=== PATIENT | female | born 1935 | race Caucasian/White ===

== ENCOUNTER 2020-01-14 17:33 | Inpatient (IN) | payer MEDICARE, MEDICAID ==
--- NOTE | 2020-01-14 18:16 | RAD ---
EXAM: CHEST ONE VIEW 01/14/20 HISTORY: Preoperative evaluation FINDINGS: Inspiration is less than optimal. Heart size is normal. The lungs appear clear of acute process. IMPRESSION: No significant acute intrathoracic disease. Atherosclerosis of the aorta. POS: RRE
[2020-01-14 18:22] LABS: Bacteria/HPF 4+ HPF (None Seen); Bilirubin Negative (Negative); Blood, Urine Trace (Negative); Clarity Clear (Clear); Glucose, Urine (Dipstick) Greater than 1000 mg/dL (Negative); Ketone, Urine 60 mg/dL (Negative); Leukocyte Negative Leu/uL (Negative); Nitrite 1+ (Negative); Protein, Urine (Dipstick) Negative (Neg-Trace); RBC/HPF 0-3 HPF (0-3); Squamous Epithelial 0-3 HPF (0-3); Urobilinogen Normal mg/dL (Less than 2); WBC/HPF 0-3 HPF (0-3)
--- NOTE | 2020-01-14 18:24 | RAD ---
EXAM: RIGHT HIP TWO VIEWS: 01/14/20 HISTORY: Injury from a fall. FINDINGS: Markedly comminuted foreshortened intertrochanteric fracture right femur. No dislocation. IMPRESSION: Markedly comminuted foreshortened intertrochanteric fracture right femur with varus deformity. POS: RRE
--- NOTE | 2020-01-14 18:27 | RAD ---
EXAM: AP PELVIS ONE VIEW: 01/14/20 HISTORY: Injury from a fall. FINDINGS: Markedly comminuted intertrochanteric fracture right hip with foreshortening and varus deformity. No evidence for acute pelvic fracture. IMPRESSION: Comminuted intertrochanteric fracture right femur with foreshortening and varus deformity. POS: RRE
[2020-01-14 18:32] LABS: #Lymphocytes 0.9 thou/uL (1.20-3.40); #Monocytes 0.6 thou/uL (0.11-0.59); %Basophils 0.1 % (0.0-1.0); %Eosinophils 0.2 % (0.0-10.0); %Lymphocytes 9.1 % (21.0-51.0); %Monocytes 5.9 % (0.0-10.0); %Neutrophils 84.8 % (42.0-75.0); Hemoglobin 15.2 g/dL (12.0-16.0); Mean Corpuscular HGB CONC 33.9 g/dL (32.0-36.0); Mean Corpuscular Hemoglobin 31.9 pg (27.0-31.0); Mean Corpuscular Volume 94.1 fL (78.0-98.0); Platelet Count 231 thou/uL (130-400); RBC Distribution Width 12.2 % (11.5-14.5); Red Blood Cell (RBC) Count 4.76 mill/uL (4.20-5.40); White Blood Cell (WBC) Count 9.5 thou/uL (4.8-10.8)
[2020-01-14] MEDS ORDERED: cefTRIAXone\\ROCEPHIN 2 GM VIAL ONE (18:33)
[2020-01-14 18:36] LABS: PTT 24.9 sec (22.9-36.1); Prothrombin Time 13.2 sec (12.0-14.7)
[2020-01-14 18:54] LABS: ALT (SGPT) 16 U/L (8-55); AST (SGOT) 24 U/L (5-34); Albumin 3.9 g/dL (3.4-4.8); Alkaline Phosphatase 97 U/L (40-110); Anion Gap 20 mmol/L (10-20); BUN (Urea Nitrogen) 13 mg/dL (9.8-20.1); Bilirubin, Total 1.5 mg/dL (0.2-1.2); CK (CPK) 223 U/L (29-168); Calc. Creatinine Clearance 0 mL/min (70-130); Calcium 9.5 mg/dL (7.8-10.44); Carbon Dioxide 18 mmol/L (23-31); Chloride 104 mmol/L (98-107); Estimated GFR-MDRD 66; Globulin 3.3 g/dL (2.4-3.5); Glucose 362 mg/dL (83-110); Potassium 4.1 mmol/L (3.5-5.1); Protein, Total 7.2 g/dL (6.0-8.3); Sodium 138 mmol/L (136-145)
--- NOTE | 2020-01-14 19:27 | CT ---
CT HEAD WITHOUT IV CONTRAST COMPARISON: None HISTORY: Trauma. Patient fell and hit head. TECHNIQUE: Axial CT imaging at 5 mm intervals from vertex through skull base without contrast FINDINGS: There is decreased attenuation in the periventricular white matter which is nonspecific but likely re flective of chronic small vessel ischemic changes. There is mild cerebral volume loss. The ventricular system is normal in size, shape, and position for the degree of sulcal atrophy. Small linear increased density focus is seen in a right parafalcine and supraventricular location ramesh suring approximately 5 mm likely due to very tiny focus of hemorrhage. No additional intraparenchymal or extra-axial hemorrhage is seen. There is no evidence of an acute cortical infarct ion, mass effect, or midline shift. Visualized paranasal sinuses are clear. Osseous structures appear intact. IMPRESSION: 1. Findings suggesting a very tiny right parafalcine focus of hemorrhage measuring 5 mm. Follow-up CT head is recommended. 2. Chronic small vessel ischemic changes and cerebral volume loss. Findings discussed Dr. Vidal in the emergency department 01/14/2020 at 1923
[2020-01-14 20:07] LABS: SARS-CoV-2 NAA Rapid Test Not Detected (NotDetected)
[2020-01-14] MEDS ORDERED: Dextrose 5% in Water 1,000 ML IV PRN (21:06)
[2020-01-14] MEDS ORDERED: Ondansetron PF 4 MG/2 ML Vial IVP PRN (21:06)
[2020-01-14] MEDS ORDERED: hydrALAZINE 20 MG/ML VIAL SLOW IVP PRN ×2 (21:06)
[2020-01-14] MEDS ORDERED: Dextrose 50% Abboject 50 ML SYRINGE SLOW IVP PRN (21:06)
[2020-01-14] MEDS ORDERED: traMADol HCl 50 MG TAB PO PRN (21:09)
[2020-01-14 21:22] LABS: Lactic Acid 1.7 mmol/L (0.5-2.2)
[2020-01-14 22:27] LABS: Hemoglobin A1c 11.8 % (4.0-6.0)
[2020-01-14 22:28] LABS: Phosphorus 2.4 mg/dL (2.3-4.7)
[2020-01-14 22:30] LABS: Magnesium 1.3 mg/dL (1.6-2.6)
[2020-01-14] MEDS ORDERED: Magnesium 2 GM/50 ML 2 GM in Premix Bag 1 BAG IVPB SCH (23:15)
[2020-01-14] MEDS: Acetaminophen 500 MG TAB PO SCH (23:21)
[2020-01-14] MEDS: Sodium Chloride 0.9% 1,000 ML IV SCH (23:22)
[2020-01-14 23:46] VITALS: BMI 32.0
[2020-01-15] MEDS ORDERED: Insulin Glargine 10 UNITS in Pre-Filled Syringe 1 EACH SC SCH (01:00)
[2020-01-15] MEDS: Levothyroxine Sodium 112 MCG TAB PO SCH (05:10)
[2020-01-15] MEDS: Acetaminophen 500 MG TAB PO SCH ×4 (05:11→22:24)
[2020-01-15] MEDS: Levothyroxine Sodium 25 MCG TAB PO SCH (05:11)
[2020-01-15] MEDS: Sodium Chloride 0.9% 1,000 ML IV SCH ×2 (05:13→16:00)
--- NOTE | 2020-01-15 05:50 | HP ---
REQUESTING PHYSICIAN: Terell Vidal MD CONSULTING PHYSICIAN: Jak Dhillon MD TRAUMA PHYSICIAN: Ap Saldivar MD HISTORY OF PRESENT ILLNESS: Ms. Chaparro is an 84-year-old female, who presented to the ED after the fall at home. Earlier this morning, the patient reports she tried to get out of her bed to go to the bathroom, missed her step and fell. After the fall, she felt hip pain and she was unable to get up and get help. She was at home all by herself at that time. The patient remember all of the event. She did not lose consciousness or hit her head. The patient was brought to the ED by EMS after her son came home from work and found her on the floor. Upon arrival in the ED, the patient is alert and awake. She complains of right hip pain. No other injury to be reported. REVIEW OF SYSTEMS: Noncontributory except per HPI. PAST MEDICAL HISTORY: The patient has a past medical history of 2 times heart attack 15 years ago, stroke 15 years ago, diabetes for 25 years, hypertension. PAST SURGICAL HISTORY: Noncontributory. SOCIAL HISTORY: The patient lives at home with family. Denies drug use. Denies smoking. Denies alcohol. CURRENT MEDICATIONS: The patient does not remember. ALLERGIES: NO KNOWN DRUG ALLERGIES. PHYSICAL EXAMINATION: GENERAL: Currently, the patient is lying in bed, comfortable with no acute respiratory distress. The patient is alert and awake. GCS 15. SKIN: Yoder and moist. HEENT: Atraumatic. No bruising. No tender to palpation. NECK: Trachea midline. No tender to palpation. CHEST: Atraumatic. Erythema around the breast crease bilaterally. LUNGS: Clear bilaterally. HEART: Regular rate and rhythm. ABDOMEN: No bruising. No tender to palpation. Nondistended. Bowel sounds are active. PELVIS: Stable. EXTREMITIES: The patient is able to move all 4 extremities. Gross sensory intact. Pulse, 2+ bilaterally. Right hip limited range of motion due to pain. DIAGNOSTIC DATA: Initial workup showed pelvic x-ray comminuted intertrochanteric fracture of the right femur. Brain CT scan finding, very tiny right parafalcine focus hemorrhage. LABORATORY DATA: Showed white count 9.5, hemoglobin 15.2, platelet count 231,000. Sodium 138, potassium 4.1, creatinine 0.82, glucose 362. A1c 11.8. Lactic acid 2.9 to 1.7, magnesium 1.3. ASSESSMENT: 1. Status post ground level fall, late presentation. 2. Right hip fracture. 3. Small subarachnoid hemorrhage. 4. No neurological deficits. 5. Hypomagnesium. 6. Tinea corporis. 7. History of diabetes, uncontrolled. PLAN: The patient will be admitted to [place] [id number] for pain control. IV fluids, n.p.o. at midnight. The patient will need to go to the OR with Dr. Menezes for right hip fracture fixation tomorrow. Manage diabetes using insulin. Treat the tinea corporis using nystatin powder. Repeat brain CT scan tomorrow. Neuro check q.2 hours. Postop, the patient will need to work with physical therapy and occupational therapy. Initiate nonpharmacological DVT prophylaxis, gastritis prophylaxis. Job ID: [id number]
[2020-01-15 05:54] LABS: Anion Gap 10 mmol/L (10-20); BUN (Urea Nitrogen) 9 mg/dL (9.8-20.1); Calc. Creatinine Clearance 71 mL/min (70-130); Calcium 8.6 mg/dL (7.8-10.44); Carbon Dioxide 24 mmol/L (23-31); Chloride 108 mmol/L (98-107); Estimated GFR-MDRD 83; Glucose 285 mg/dL (83-110); Phosphorus 2.5 mg/dL (2.3-4.7); Potassium 3.4 mmol/L (3.5-5.1); Sodium 139 mmol/L (136-145)
[2020-01-15] MEDS ORDERED: Potassium Phosphate 15 MMOL in Sodium Chloride 0.9% 250 ML 250 ML IVPB SCH (06:15)
--- NOTE | 2020-01-15 06:51 | CON ---
DATE OF CONSULTATION: 01/15/2020 HISTORY OF PRESENT ILLNESS: The patient is an 84-year-old female, who suffered a mechanical fall at home, striking her head and her right hip. Unfortunately, she was unable to get up at that time and laid on the floor for several hours until her son found her on the floor. She was brought to the emergency department for evaluation and found to have a right hip fracture as well as small amount of traumatic subarachnoid hemorrhage along the right parafalcine region. She was also found to have an elevated CK, likely secondary to lying on the floor for several hours. Neurosurgery was consulted for evaluation of her traumatic subarachnoid bleed. I visited the patient on the bedside at the floor. She has a GCS 15 and is nonfocal on her neurologic exam. PAST MEDICAL HISTORY: Hypothyroidism, history of endocrine cancer, hyperlipidemia, and hypertension. FAMILY HISTORY: Noncontributory. SOCIAL HISTORY: She does not smoke, drink, or use any drugs. REVIEW OF SYSTEMS: Per HPI. PHYSICAL EXAMINATION: GENERAL: I visited the patient on the floor. She is awake, alert, in no acute distress. GCS 15. HEENT: Head; normocephalic and atraumatic. Eyes; PERRLA. Extraocular movements intact. ENT, pink intact, and moist. She has normal voice. NECK: Nontender. Free active range of motion. CARDIAC: Regular rate and rhythm. PULMONARY: Symmetric chest expansion. No evidence of dyspnea. MUSCULOSKELETAL: She has pain and limited range of motion of the right lower extremity secondary to underlying hip fractures. Her sensation is intact to light touch. She is able to move the toes on that side without any difficulty. Remainder of extremities, free active range of motion. No focal motor weakness. NEUROLOGIC: No focal neurologic deficits are appreciated. ASSESSMENT AND PLAN: This is an 84-year-old female, status post mechanical fall with a right hip fracture and a small right parafalcine tSAH on noncontrast head CT. This is very tiny and there are no plans for acute neurosurgical intervention at this time. We will monitor her neurologic exam and repeat a morning head CT. Discussed with Dr. Dhillon, who is in agreement. This is a 50-minute patient encounter, where greater than 50% of the time was spent in [id number] counseling. The remainder of the time was spent in review of imaging records and formulation of plan. Job ID: [id number] MTDD
--- NOTE | 2020-01-15 08:49 | CT ---
Exam: Head CT without contrast HISTORY: Reevaluate tiny right parafalcine subdural hematoma COMPARISON: 01/14/2020 FINDINGS: Hemorrhage: Stable subtle hyperdensity, right parafalcine in location measuring 0.5 cm. No additional intraparenchymal or extra-axial hematoma. Brain parenchyma: Cortical lau-white matter differentiation is preserved. No mass effect or midline shift. Basilar cisterns are patent.Stable confluent white matter hypodensities due to chronic small vessel ischemic change Ventricular system: Ventricles and sulci are patent and symmetric. Calvarium: Intact. Sinuses and mastoid air cells: Mild mucosal thickening of the paranasal sinuses IMPRESSION: 1. Stable subtle hyperdensity, right parafalcine in location. Small focus of hemorrhage cannot be ent irely excluded. The possibility of a small cortically based hematoma is a consideration. Continued surveillance is recommended.
[2020-01-15] MEDS ORDERED: Gabapentin 300 MG CAP PO SCH (09:00)
[2020-01-15] MEDS: Famotidine 20 MG TAB PO SCH ×2 (09:11→20:17)
[2020-01-15] MEDS: Alogliptin 25 MG TAB PO SCH (09:12)
[2020-01-15] MEDS: Atorvastatin Calcium 40 MG TAB PO SCH (09:12)
[2020-01-15] MEDS: Lisinopril 20 MG TAB PO SCH (09:20)
[2020-01-15] MEDS: Nystatin Powder 15 GM BOT TOP SCH ×2 (09:20→20:18)
[2020-01-15] MEDS: Senokot S 8.6-50 MG TAB PO SCH ×2 (09:21→20:17)
[2020-01-15] MEDS: Polyethylene Glycol 3350 17 GM Packet PO SCH (09:21)
--- NOTE | 2020-01-15 09:32 | CON ---
DATE OF CONSULTATION: 01/14/2020 CHIEF COMPLAINT: Right hip pain. HISTORY OF PRESENT ILLNESS: Ms. Chaparro is an 84-year-old female who unfortunately fell at home earlier this afternoon. The patient lost her balance. She was not using her walker. She got up to go to the bathroom, when she missed a step. She was found down and was taken to the emergency department by EMS. X-rays have found a right intertrochanteric femur fracture. She is having right hip pain, but has received pain medications and is resting fairly comfortably. She denies other injuries. PAST MEDICAL HISTORY: 1. Coronary artery disease. 2. Diabetes. 3. Hypertension. REVIEW OF SYSTEMS: Positive for right hip pain. Otherwise, negative 10-point review of systems. PAST SURGICAL HISTORY: The patient denies recent surgeries. SOCIAL HISTORY: The patient lives independently. She uses a walker. She denies alcohol, tobacco, or drug use. MEDICATIONS: Unknown. ALLERGIES: SHE REPORTS NO ALLERGIES. IMAGING STUDIES: X-rays of the pelvis and right hip demonstrate a displaced and comminuted intertrochanteric fracture of the right femur, this is acute. LABORATORY STUDIES: White blood cell count is 9.5, hemoglobin is 15.2, and hematocrit is 44.8. PHYSICAL EXAMINATION: VITAL SIGNS: Stable. The patient's temperature is 98.7, pulse is 93, respiratory rate 16, and 170/66 of blood pressure. HEENT: Normocephalic and atraumatic. RESPIRATORY: Breathing comfortably. ABDOMEN: Soft, nontender, and nondistended. The patient is somewhat obese. Pulses are palpable and regular. MUSCULOSKELETAL: The patient's right lower extremity has shortening and external rotation. She has pain with hip motion. She has some swelling of the thigh. Her compartments are soft. She is neurovascularly intact in the feet and ankles bilaterally. Upper extremities are atraumatic. IMPRESSION: Right intertrochanteric femur fracture. PLAN: At this point, the patient will need to go to the operating room for intramedullary nail fixation of her right femur. She is aware of risks and benefits of this. She will have preoperative medical optimization. She will have ongoing workup including CT scan of the head. She will have a urinalysis to see if she does in fact have a UTI as well. She will have DVT prophylaxis and antibiotic prophylaxis. N.p.o. at midnight. Job ID: [id number]
[2020-01-15] MEDS: Sulfameth/Trimethoprim DS 800-160mg TAB PO SCH ×2 (09:42→20:17)
[2020-01-15] MEDS ORDERED: PROPOFOL 200 MG/20 ML VIAL ONE (11:01)
[2020-01-15] MEDS ORDERED: Bupivacaine HCl 0.5%/Epinephrine 1:200,000/PF 30 ml Vial ONE (11:01)
[2020-01-15] MEDS ORDERED: Glycopyrrolate 0.2 MG/ML 5 ML SYRINGE ONE (11:01)
[2020-01-15] MEDS ORDERED: Ondansetron PF 4 MG/2 ML Vial ONE (11:01)
[2020-01-15] MEDS ORDERED: Rocuronium Bromide 10 MG/ML (10ML VIAL) ONE (11:01)
[2020-01-15] MEDS ORDERED: PHENYLEPHRINE-NS 100 MCG/ML 10 ML SYRINGE ONE (11:01)
[2020-01-15] MEDS ORDERED: Fentanyl 100 MCG/2 ML VIAL ONE ×3 (12:10→14:14)
[2020-01-15] MEDS ORDERED: Midazolam HCl 2 mg/2 ml Vial ONE (12:27)
--- NOTE | 2020-01-15 13:50 | RAD ---
Radiograph right hip 2 views: 01/15/2020 HISTORY: 84-year-old female with acute, traumatic, comminuted, displaced intertrochanteric fracture of right p roximal femur. COMPARISON: 01/14/2020 FINDINGS: 3 fluoroscopic spot images obtained with C-arm. The fracture has been reduced, and fixated with gamma nail. IMPRESSION: Status post hardware fixation of acute, traumatic intertrochanteric fracture with gamma nail.
[2020-01-15] MEDS ORDERED: CEFAZOLIN 2 GM in Premix Bag 1 BAG IVPB SCH (14:00)
[2020-01-15] MEDS: Gabapentin 100 MG CAP PO SCH ×2 (16:00→20:17)
--- NOTE | 2020-01-15 16:03 | OP ---
DATE OF PROCEDURE: 01/15/2020 OPERATION PERFORMED: Right femur intramedullary nail. PREOPERATIVE DIAGNOSIS: Right displaced proximal femur fracture. POSTOPERATIVE DIAGNOSIS: Right displaced proximal femur fracture. COMPLICATIONS: None. ESTIMATED BLOOD LOSS: 100 mL. CONTENT DEVELOPER: Derek Wilson PA-C IMPLANTS: Synthes 10-mm trochanteric nail with a size 90-mm helical blade DESCRIPTION OF OPERATION: Ms. Chaparro was identified in the preoperative holding area. Her correct extremity was marked. She was carried to the operating room. She was positioned supine. General anesthesia was induced. A multidisciplinary time-out was performed. The right lower extremity was prepped and draped in sterile fashion. We began the procedure with reducing the intertrochanteric femur fracture. The patient's leg was placed in traction and rotated. We took intraoperative x-rays, confirming we had a reduced fracture. At this point, we made a small incision proximal to the greater trochanter. We incised through the subcutaneous tissues. A guidewire was then inserted in the tip of the trochanter. This was passed distally. We then over-reamed the guidewire. At this point, we inserted our 10-mm trochanteric nail. We then placed our guidewire in the centered position of the femoral head using the appropriate guide. We overdrilled the guidewire and placed our helical blade. This was placed into a dynamic position. At this point, we placed a distal Crosslock screw. We took final x-ray images. We thoroughly irrigated with copious lavage. We then closed the wounds in layers appropriately. The patient was taken to the recovery room in good condition. Job ID: [id number]
--- NOTE | 2020-01-15 19:07 | PRG ---
DATE OF SERVICE: 01/15/2020 SUBJECTIVE: The patient is currently on the surgical floor. She was admitted last night, status post ground level fall when she sustained a right hip fracture and small subarachnoid hemorrhage. The patient had no issues overnight. This morning, her repeat head CT showed a stable subarachnoid hemorrhage. She was cleared to go to surgery for her repair of hers proximal femur fracture. The patient remained n.p.o. overnight. This morning, she stated that her pain was well controlled. OBJECTIVE: VITAL SIGNS: Temperature is 98.1, heart rate 93, blood pressure 105/63, respirations 16, and oxygen saturation is 91% on room air. GENERAL: The patient is resting comfortably in bed. She is awake, alert, conversant, and appropriate. HEENT: Unremarkable. LUNGS: Clear to auscultation with good inspiratory and expiratory effort. HEART: Regular rate and rhythm. ABDOMEN: Soft, flat, and nontender with active bowel sounds. EXTREMITIES: Neurovascularly intact x4. LABORATORY FINDINGS: Sodium 139, potassium 3.4, chloride 108, CO2 of 24, BUN 9, creatinine 0.67, glucose 285, magnesium 2.0, and phosphorus 2.5. RADIOGRAPHS: No radiographs to review this morning. ASSESSMENT/PLAN: 1. Status post ground level fall with delayed presentation. 2. Right proximal femur fracture. 3. Small subarachnoid hemorrhage, stable. 4. History of diabetes, uncontrolled. 5. Plan to be to continue supportive care. Encourage physical and occupational therapy after surgery and we will discuss placement at that time also. The evaluation and examination were done with Dr. Davis in rounds this morning. Job ID: [id number]
[2020-01-15] MEDS: CEFAZOLIN 2 GM in Premix Bag 1 BAG IVPB SCH (20:12)
[2020-01-15] MEDS: Insulin Glargine 10 UNITS in Pre-Filled Syringe 1 EACH SC SCH (20:18)
[2020-01-16] MEDS: HumaLOG 300 UNITS/3 ML VIAL SC PRN ×4 (00:16→21:07)
[2020-01-16] MEDS: traMADol HCl 50 MG TAB PO PRN (00:16)
--- NOTE | 2020-01-16 00:53 | PRG ---
DATE OF SERVICE: 01/15/2020 SUBJECTIVE: Ms. Chaparro is an 84-year-old female, status post ground level fall. She sustained right hip fracture. She underwent right hip fracture fixation today. The patient tolerated the procedure well. Postop, the patient is doing well. Pain is well controlled. She also has small subarachnoid hemorrhage with no neurological deficits. She will plan to have repeat CT scan tomorrow. Overall, the patient voiced no concern. She developed no fever or shortness of breath. OBJECTIVE: GENERAL: Currently, the patient is lying in bed comfortable with no acute respiratory distress. VITAL SIGNS: Stable. LUNGS: Clear bilaterally. HEART: Regular rate and rhythm. ABDOMEN: Soft and nondistended. EXTREMITIES: Neurovascularly intact x4. Postop dressing clean and dry. NEUROLOGIC: No focal neurology deficits. ASSESSMENT: 1. Status post ground level fall. 2. Right hip fracture, status post repair. 3. Small subarachnoid hemorrhage with no neurological deficits. 4. History of diabetes, uncontrolled. PLAN: Continue supportive care. Continue pain control. Encourage working with Physical Therapy and Occupational Therapy tomorrow. Continue diabetes treatment with just insulin as needed. Anticipate discharge to rehabilitation facility in the next 24 to 48 hours. Job ID: [id number] MTDD
[2020-01-16] MEDS: CEFAZOLIN 2 GM in Premix Bag 1 BAG IVPB SCH (04:19)
[2020-01-16] MEDS: Levothyroxine Sodium 112 MCG TAB PO SCH (05:24)
[2020-01-16] MEDS: Acetaminophen 500 MG TAB PO SCH ×4 (05:24→23:22)
[2020-01-16] MEDS: Levothyroxine Sodium 25 MCG TAB PO SCH (05:24)
[2020-01-16 05:59] LABS: Anion Gap 10 mmol/L (10-20); BUN (Urea Nitrogen) 8 mg/dL (9.8-20.1); Calc. Creatinine Clearance 73 mL/min (70-130); Calcium 8.4 mg/dL (7.8-10.44); Carbon Dioxide 22 mmol/L (23-31); Chloride 107 mmol/L (98-107); Estimated GFR-MDRD 86; Glucose 126 mg/dL (83-110); Magnesium 1.7 mg/dL (1.6-2.6); Phosphorus 1.8 mg/dL (2.3-4.7); Potassium 3.4 mmol/L (3.5-5.1); Sodium 136 mmol/L (136-145)
[2020-01-16] MEDS ORDERED: Potassium Phosphate 15 MMOL in Sodium Chloride 0.9% 250 ML 250 ML IVPB SCH (06:45)
--- NOTE | 2020-01-16 07:57 | PRG ---
DATE OF SERVICE: 01/16/2020 SUBJECTIVE: The patient was seen and examined, agree with Kasie Sewell's evaluation on 01/15/2020. The patient is an 84-year-old woman, who fell fracturing her hip. She was found to have a tiny punctate parafalcine subdural hematoma. She is currently alert and oriented and nonfocal, although obviously her lower extremity exam is limited. Follow up CT scan performed today again shows the very tiny hyperdensity parafalcine. IMPRESSION AND PLAN: Tiny parafalcine subdural hematoma. She has no sequelae from this and no further followup is recommended. With regard to anticoagulation, I would recommend holding antiplatelet agents for 2 weeks and then resuming. If she needs anticoagulation prophylactically for deep venous thrombosis prophylaxis, this can be initiated at any time. Job ID: [id number]
[2020-01-16] MEDS: Atorvastatin Calcium 40 MG TAB PO SCH (08:50)
[2020-01-16] MEDS: Polyethylene Glycol 3350 17 GM Packet PO SCH (08:50)
[2020-01-16] MEDS: Lisinopril 20 MG TAB PO SCH (08:50)
[2020-01-16] MEDS: Alogliptin 25 MG TAB PO SCH (08:50)
[2020-01-16] MEDS: Senokot S 8.6-50 MG TAB PO SCH ×2 (08:50→22:20)
[2020-01-16] MEDS: Famotidine 20 MG TAB PO SCH ×2 (08:50→21:06)
[2020-01-16] MEDS: Gabapentin 100 MG CAP PO SCH ×3 (08:51→21:06)
[2020-01-16] MEDS: Sulfameth/Trimethoprim DS 800-160mg TAB PO SCH ×2 (08:51→21:06)
[2020-01-16] MEDS: Nystatin Powder 15 GM BOT TOP SCH ×2 (08:55→21:15)
[2020-01-16] MEDS ORDERED: Potassium Phosphate 15 MMOL, Magnesium Sulfate 2 GM in Sodium Chloride 0.9% 250 ML 250 ML IVPB SCH (12:00)
[2020-01-16] MEDS ORDERED: Melatonin 3 MG TAB PO PRN (16:02)
--- NOTE | 2020-01-16 16:24 | PRG ---
DATE OF SERVICE: 01/16/2020 SUBJECTIVE: The patient remains on the surgical floor. She is status post ground level fall, in which, she sustained a right hip fracture and small subarachnoid hemorrhage. Yesterday, she underwent open reduction and internal fixation of same, which she tolerated well. Her head CT has remained stable and Neurosurgery stated that she may begin chemical VTE prophylaxis, but would need to hold antiplatelet therapy. The patient began working with physical and occupational therapy today. She reports her pain is controlled. She is tolerating a diet. PHYSICAL EXAMINATION: VITAL SIGNS: Temperature is 99.0, heart rate 94, blood pressure 124/71, respirations 16, oxygen saturations 92% on room air. GENERAL: The patient is resting comfortably in bed. She is awake, alert, conversant, and appropriate. She is just completed working with Physical Therapy. HEENT: Unremarkable. LUNGS: Clear to auscultation with good inspiratory and expiratory effort. HEART: Regular rate and rhythm. ABDOMEN: Soft, flat, nontender with active bowel sounds. EXTREMITIES: Neurovascularly intact x4. Postop dressing is clean, dry, and intact. LABORATORY FINDINGS: Sodium 136, potassium 3.4, chloride 107, CO2 of 22, BUN 8, creatinine 0.65, glucose 126, magnesium 1.7, phosphorus 1.8. There are no radiographs reviewed this morning. ASSESSMENT: 1. Status post ground level fall with delayed presentation. 2. Right proximal femur fracture, status post open reduction and internal fixation of same. 3. Small subarachnoid hemorrhage, stable. 4. History of diabetes, uncontrolled. PLAN: Plan will be to continue supportive care. Encourage physical and occupational therapy and discuss placement. The patient will have Lovenox started this morning. Job ID: [id number]
[2020-01-16 16:25] LABS: Hemoglobin 11.5 g/dL (12.0-16.0)
[2020-01-16] MEDS: Insulin Glargine 10 UNITS in Pre-Filled Syringe 1 EACH SC SCH (21:07)
--- NOTE | 2020-01-17 01:12 | PDOC.BPN ---
- Brief Progress Note DATE OF SERVICE: 01/16/2020 SUBJECTIVE: Ms. Chaparro is an 84-year-old female, status post ground level fall. She sustained right hip fracture. She underwent right hip fracture fixation post op day 1. She also has small subarachnoid hemorrhage with no neurological deficits. repeat CT scan stable. Overall, the patient voiced no concern. She developed no fever or shortness of breath. OBJECTIVE: GENERAL: Currently, the patient is lying in bed comfortable with no acute respiratory distress. VITAL SIGNS: Stable. LUNGS: Clear bilaterally. HEART: Regular rate and rhythm. ABDOMEN: Soft and nondistended. EXTREMITIES: Neurovascularly intact x4. Postop dressing clean and dry. NEUROLOGIC: No focal neurology deficits. ASSESSMENT: 1. Status post ground level fall. 2. Right hip fracture, status post repair. 3. Small subarachnoid hemorrhage with no neurological deficits. 4. History of diabetes, uncontrolled. PLAN: Continue supportive care. Continue pain control. Encourage working with Physical Therapy and Occupational Therapy . Continue diabetes treatment with insulin as needed. Anticipate discharge to rehabilitation facility in the next 24 to 48 hours.
[2020-01-17 04:58] LABS: #Basophils 0.1 thou/uL (0.0-0.2); #Eosinphils 0.3 thou/uL (0.0-0.7); #Lymphocytes 2.9 thou/uL (1.20-3.40); #Monocytes 0.8 thou/uL (0.11-0.59); #Neutrophils 4.1 thou/uL (1.40-6.50); %Basophils 1.5 % (0.0-1.0); %Eosinophils 4.1 % (0.0-10.0); %Lymphocytes 35.4 % (21.0-51.0); %Monocytes 9.4 % (0.0-10.0); %Neutrophils 49.5 % (42.0-75.0); Hemoglobin 10.7 g/dL (12.0-16.0); Mean Corpuscular HGB CONC 33.2 g/dL (32.0-36.0); Mean Corpuscular Hemoglobin 32.1 pg (27.0-31.0); Mean Corpuscular Volume 96.7 fL (78.0-98.0); Mean Platelet Volume 7.5 fL (7.4-10.4); Platelet Count 168 thou/uL (130-400); RBC Distribution Width 12.5 % (11.5-14.5); Red Blood Cell (RBC) Count 3.34 mill/uL (4.20-5.40); White Blood Cell (WBC) Count 8.2 thou/uL (4.8-10.8)
[2020-01-17 05:16] LABS: Anion Gap 11 mmol/L (10-20); BUN (Urea Nitrogen) 12 mg/dL (9.8-20.1); Calc. Creatinine Clearance 73 mL/min (70-130); Calcium 8.9 mg/dL (7.8-10.44); Carbon Dioxide 21 mmol/L (23-31); Chloride 107 mmol/L (98-107); Estimated GFR-MDRD 86; Glucose 191 mg/dL (83-110); Phosphorus 2.4 mg/dL (2.3-4.7); Potassium 3.6 mmol/L (3.5-5.1); Sodium 135 mmol/L (136-145)
[2020-01-17] MEDS: Levothyroxine Sodium 25 MCG TAB PO SCH (05:32)
[2020-01-17] MEDS: Levothyroxine Sodium 112 MCG TAB PO SCH (05:32)
[2020-01-17] MEDS: Acetaminophen 500 MG TAB PO SCH ×4 (05:32→22:49)
[2020-01-17] MEDS: traMADol HCl 50 MG TAB PO PRN ×2 (05:51→14:33)
[2020-01-17] MEDS: HumaLOG 300 UNITS/3 ML VIAL SC PRN ×4 (07:21→21:10)
[2020-01-17] MEDS ORDERED: Enoxaparin Sodium 30 MG/0.3 ML SYRINGE SC SCH (09:00)
[2020-01-17] MEDS ORDERED: Enoxaparin Sodium 40 MG/0.4 ML SYRINGE SC SCH (09:00)
[2020-01-17] MEDS: Famotidine 20 MG TAB PO SCH ×2 (09:26→21:06)
[2020-01-17] MEDS: Senokot S 8.6-50 MG TAB PO SCH ×2 (09:26→21:06)
[2020-01-17] MEDS: Gabapentin 100 MG CAP PO SCH ×3 (09:26→21:07)
[2020-01-17] MEDS: Alogliptin 25 MG TAB PO SCH (09:26)
[2020-01-17] MEDS: Polyethylene Glycol 3350 17 GM Packet PO SCH (09:26)
[2020-01-17] MEDS: Lisinopril 20 MG TAB PO SCH (09:27)
[2020-01-17] MEDS: Atorvastatin Calcium 40 MG TAB PO SCH (09:27)
[2020-01-17] MEDS: Sulfameth/Trimethoprim DS 800-160mg TAB PO SCH ×2 (09:27→21:09)
[2020-01-17] MEDS: Nystatin Powder 15 GM BOT TOP SCH ×2 (09:27→21:11)
[2020-01-17] MEDS: Acetaminophen/Codeine 30-300mg Tablet PO PRN (12:39)
--- NOTE | 2020-01-17 18:40 | PRG ---
DATE OF SERVICE: 01/17/2020 SUBJECTIVE: The patient remains on the surgical floor. She is status post ground level fall, in which, she sustained a right hip fracture and small subarachnoid hemorrhage. The patient is status post open reduction and internal fixation of same. She tolerated that well. She has begun working with physical and occupational therapy and she is awaiting placement. PHYSICAL EXAMINATION: VITAL SIGNS: Temperature is 98.0, heart rate 94, blood pressure 102/69, respirations 12, oxygen saturation is 94% on room air. GENERAL: The patient is resting, sitting on the side of the bed. She is just completed working with therapy. She was able to take several steps within the room. RESPIRATIONS: Nonlabored. Her lungs are clear to auscultation bilaterally. HEART: Regular rate and rhythm. ABDOMEN: Soft, nontender with active bowel sounds. EXTREMITIES: Neurovascularly intact x4. Postop dressing is clean, dry, and intact. LABORATORY FINDINGS: WBC 8.2, hemoglobin 10.7, hematocrit 32.3, and platelets 168. Sodium 135, potassium 3.6, chloride 107, CO2 of 21, BUN 12, creatinine 0.65, glucose 191, magnesium 2.0, phosphorus 2.4. There are no radiographs reviewed this morning. ASSESSMENT: 1. Status post ground level fall with delayed presentation. 2. Right proximal femur fracture, status post open reduction and internal fixation of same. 3. Small subarachnoid hemorrhage, stable. 4. History of diabetes, uncontrolled. PLAN: Plan will be to continue supportive care. Encourage physical and occupational therapy. Await placement. Job ID: [id number]
[2020-01-17] MEDS: Insulin Glargine 10 UNITS in Pre-Filled Syringe 1 EACH SC SCH (21:10)
--- NOTE | 2020-01-18 00:23 | PDOC.BPN ---
- Brief Progress Note DATE OF SERVICE: 01/17/2020 SUBJECTIVE: Ms. Chaparro is an 84-year-old female, status post ground level fall. She sustained right hip fracture. She underwent right hip fracture fixation post op day 2. She also has small subarachnoid hemorrhage with no neurological deficits. repeat CT scan stable. Overall, the patient voiced no concern. She developed no fever or shortness of breath. OBJECTIVE: GENERAL: Currently, the patient is lying in bed comfortable with no acute respiratory distress. VITAL SIGNS: Stable. LUNGS: Clear bilaterally. HEART: Regular rate and rhythm. ABDOMEN: Soft and nondistended. EXTREMITIES: Neurovascularly intact x4. Postop dressing clean and dry. NEUROLOGIC: No focal neurology deficits. ASSESSMENT: 1. Status post ground level fall. 2. Right hip fracture, status post repair. 3. Small subarachnoid hemorrhage with no neurological deficits. 4. History of diabetes, uncontrolled. PLAN: Continue supportive care. Continue pain control. Encourage working with Physical Therapy and Occupational Therapy . Continue diabetes treatment with insulin as needed. Anticipate discharge to rehabilitation facility in the on Monday.
[2020-01-18] MEDS: Acetaminophen/Codeine 30-300mg Tablet PO PRN ×2 (03:51→14:03)
[2020-01-18] MEDS: Levothyroxine Sodium 112 MCG TAB PO SCH (06:23)
[2020-01-18] MEDS: Acetaminophen 500 MG TAB PO SCH ×4 (06:23→23:01)
[2020-01-18] MEDS: Levothyroxine Sodium 25 MCG TAB PO SCH (06:24)
[2020-01-18] MEDS: HumaLOG 300 UNITS/3 ML VIAL SC PRN ×4 (06:26→20:32)
[2020-01-18] MEDS ORDERED: Aspirin Chewable 81 MG TAB PO SCH (09:00)
[2020-01-18] MEDS: Atorvastatin Calcium 40 MG TAB PO SCH (10:00)
[2020-01-18] MEDS: Famotidine 20 MG TAB PO SCH ×2 (10:00→20:31)
[2020-01-18] MEDS: Alogliptin 25 MG TAB PO SCH (10:00)
[2020-01-18] MEDS: Enoxaparin Sodium 30 MG/0.3 ML SYRINGE SC SCH (10:00)
[2020-01-18] MEDS: Polyethylene Glycol 3350 17 GM Packet PO SCH (10:00)
[2020-01-18] MEDS: Senokot S 8.6-50 MG TAB PO SCH ×2 (10:01→20:32)
[2020-01-18] MEDS: traMADol HCl 50 MG TAB PO PRN (10:01)
[2020-01-18] MEDS: Lisinopril 20 MG TAB PO SCH (10:01)
[2020-01-18] MEDS: Gabapentin 100 MG CAP PO SCH ×3 (10:01→20:31)
[2020-01-18] MEDS: Nystatin Powder 15 GM BOT TOP SCH ×2 (10:02→20:32)
--- NOTE | 2020-01-18 18:57 | PRG ---
DATE OF SERVICE: 01/18/2020 SUBJECTIVE: The patient remains on the surgical floor. She is status post a ground level fall, in which she sustained a right hip fracture and a small subarachnoid hemorrhage. The patient underwent operative intervention for her hip fracture. She tolerated that well. Her subarachnoid hemorrhage remained stable. She has been working with Physical and Occupational Therapy and making slow progress but is making forward progress. She is currently awaiting placement. OBJECTIVE: VITAL SIGNS: Temperature is 98.3, heart rate 103, respirations 16, oxygen saturation is 96% on room air, and blood pressure 135/80. GENERAL: The patient is resting comfortably in bed. She has just finished working with Physical Therapy. She states her pain control is much better. She was able to participate more and she is actually looking forward to her next session this afternoon. LUNGS: Clear to auscultation bilaterally. HEART: Regular rate and rhythm. ABDOMEN: Soft, flat, nontender with active bowel sounds. EXTREMITIES: Neurovascularly intact x4. LABORATORY DATA: There are no labs or radiographs to review this morning. ASSESSMENT AND PLAN: 1. Status post ground level fall with delayed presentation. 2. Status post open reduction and internal fixation of right proximal femur fracture. 3. Small subarachnoid hemorrhage, stable. 4. History of diabetes, uncontrolled, resumed sliding scale insulin. Plan will be to continue supportive care. Encourage physical and occupational therapy and await placement. Job ID: [id number]
[2020-01-18] MEDS: Insulin Glargine 15 UNITS in Pre-Filled Syringe 1 EACH SC SCH (20:31)
--- NOTE | 2020-01-18 23:54 | PDOC.BPN ---
- Brief Progress Note DATE OF SERVICE: 01/18/2020 SUBJECTIVE: Ms. Chaparro is an 84-year-old female, status post ground level fall. She sustained right hip fracture. She underwent right hip fracture fixation post op day 3. She also has small subarachnoid hemorrhage with no neurological deficits. repeat CT scan stable. Overall, the patient voiced no concern. She developed no fever or shortness of breath. Her glycemia is still not controlled OBJECTIVE: GENERAL: Currently, the patient is lying in bed comfortable with no acute respiratory distress. VITAL SIGNS: Stable. LUNGS: Clear bilaterally. HEART: Regular rate and rhythm. ABDOMEN: Soft and nondistended. EXTREMITIES: Neurovascularly intact x4. Postop dressing clean and dry. NEUROLOGIC: No focal neurology deficits. ASSESSMENT: 1. Status post ground level fall. 2. Right hip fracture, status post repair. 3. Small subarachnoid hemorrhage with no neurological deficits. 4. History of diabetes, uncontrolled. PLAN: Continue supportive care. Continue pain control. Encourage working with Physical Therapy and Occupational Therapy . increase lantus from 10 UI to 15 Ui tonight . Anticipate discharge to rehabilitation facility in the on Monday.
[2020-01-19 05:49] LABS: #Basophils 0.1 thou/uL (0.0-0.2); #Eosinphils 0.3 thou/uL (0.0-0.7); #Lymphocytes 2.6 thou/uL (1.20-3.40); #Monocytes 0.5 thou/uL (0.11-0.59); #Neutrophils 3.4 thou/uL (1.40-6.50); %Eosinophils 3.7 % (0.0-10.0); %Monocytes 7.6 % (0.0-10.0); %Neutrophils 49.7 % (42.0-75.0); Hemoglobin 10.7 g/dL (12.0-16.0); Mean Corpuscular HGB CONC 32.5 g/dL (32.0-36.0); Mean Corpuscular Hemoglobin 31.5 pg (27.0-31.0); Mean Corpuscular Volume 96.9 fL (78.0-98.0); Platelet Count 260 thou/uL (130-400); RBC Distribution Width 12.5 % (11.5-14.5); White Blood Cell (WBC) Count 6.8 thou/uL (4.8-10.8)
[2020-01-19 06:12] LABS: Anion Gap 10 mmol/L (10-20); BUN (Urea Nitrogen) 10 mg/dL (9.8-20.1); Calc. Creatinine Clearance 72 mL/min (70-130); Calcium 9.1 mg/dL (7.8-10.44); Carbon Dioxide 26 mmol/L (23-31); Chloride 104 mmol/L (98-107); Estimated GFR-MDRD 85; Glucose 190 mg/dL (83-110); Magnesium 1.7 mg/dL (1.6-2.6); Phosphorus 2.6 mg/dL (2.3-4.7); Potassium 3.8 mmol/L (3.5-5.1); Sodium 136 mmol/L (136-145)
[2020-01-19] MEDS: Acetaminophen 500 MG TAB PO SCH ×4 (06:23→22:43)
[2020-01-19] MEDS: Levothyroxine Sodium 25 MCG TAB PO SCH (06:23)
[2020-01-19] MEDS: Levothyroxine Sodium 112 MCG TAB PO SCH (06:23)
[2020-01-19] MEDS: HumaLOG 300 UNITS/3 ML VIAL SC PRN ×3 (06:45→20:49)
[2020-01-19] MEDS: Atorvastatin Calcium 40 MG TAB PO SCH (08:41)
[2020-01-19] MEDS: Lisinopril 20 MG TAB PO SCH (08:41)
[2020-01-19] MEDS: Gabapentin 100 MG CAP PO SCH ×3 (08:41→20:12)
[2020-01-19] MEDS: Famotidine 20 MG TAB PO SCH ×2 (08:41→20:12)
[2020-01-19] MEDS: Alogliptin 25 MG TAB PO SCH (08:41)
[2020-01-19] MEDS: traMADol HCl 50 MG TAB PO PRN (08:41)
[2020-01-19] MEDS: Enoxaparin Sodium 30 MG/0.3 ML SYRINGE SC SCH (08:41)
[2020-01-19] MEDS: Polyethylene Glycol 3350 17 GM Packet PO SCH (08:42)
[2020-01-19] MEDS: Nystatin Powder 15 GM BOT TOP SCH ×2 (08:42→22:43)
[2020-01-19] MEDS: Senokot S 8.6-50 MG TAB PO SCH ×2 (08:43→20:13)
[2020-01-19] MEDS: Magnesium Oxide 400 MG TAB PO SCH ×2 (09:31→20:12)
[2020-01-19] MEDS: Insulin Glargine 15 UNITS in Pre-Filled Syringe 1 EACH SC SCH (20:50)
--- NOTE | 2020-01-19 23:14 | PDOC.BPN ---
- Brief Progress Note DATE OF SERVICE: 01/19/2020 SUBJECTIVE: Ms. Chaparro is an 84-year-old female, status post ground level fall. She sustained right hip fracture. She underwent right hip fracture fixation post op day 3. She also has small subarachnoid hemorrhage with no neurological deficits. repeat CT scan stable. Overall, the patient voiced no concern. She developed no fever or shortness of breath. Her DM is better controlled OBJECTIVE: GENERAL: Currently, the patient is lying in bed comfortable with no acute respiratory distress. VITAL SIGNS: Stable. LUNGS: Clear bilaterally. HEART: Regular rate and rhythm. ABDOMEN: Soft and nondistended. EXTREMITIES: Neurovascularly intact x4. Postop dressing clean and dry. NEUROLOGIC: No focal neurology deficits. ASSESSMENT: 1. Status post ground level fall. 2. Right hip fracture, status post repair. 3. Small subarachnoid hemorrhage with no neurological deficits. 4. History of diabetes, PLAN: Continue supportive care. Continue pain control. Encourage working with Physical Therapy and Occupational Therapy . . Anticipate discharge to rehabilitation facility in the on Monday.
[2020-01-20] MEDS: HumaLOG 300 UNITS/3 ML VIAL SC PRN ×2 (05:48→11:52)
[2020-01-20] MEDS: Levothyroxine Sodium 112 MCG TAB PO SCH (05:57)
[2020-01-20] MEDS: Acetaminophen 500 MG TAB PO SCH ×3 (05:57→16:18)
[2020-01-20] MEDS: Levothyroxine Sodium 25 MCG TAB PO SCH (05:57)
[2020-01-20] MEDS: traMADol HCl 50 MG TAB PO PRN ×2 (05:57→13:20)
[2020-01-20] MEDS: Enoxaparin Sodium 30 MG/0.3 ML SYRINGE SC SCH (09:52)
[2020-01-20] MEDS: Polyethylene Glycol 3350 17 GM Packet PO SCH ×2 (09:53→10:04)
[2020-01-20] MEDS: Senokot S 8.6-50 MG TAB PO SCH (09:53)
[2020-01-20] MEDS: Gabapentin 100 MG CAP PO SCH ×2 (09:54→16:20)
[2020-01-20] MEDS: Magnesium Oxide 400 MG TAB PO SCH (09:54)
[2020-01-20] MEDS: Famotidine 20 MG TAB PO SCH (09:54)
[2020-01-20] MEDS: Atorvastatin Calcium 40 MG TAB PO SCH (09:54)
[2020-01-20] MEDS: Alogliptin 25 MG TAB PO SCH (09:54)
[2020-01-20] MEDS: Lisinopril 20 MG TAB PO SCH (09:55)
[2020-01-20] MEDS: Nystatin Powder 15 GM BOT TOP SCH (09:56)
[2020-01-20 16:15] VITALS: BP 137/80; TEMP 97.9
== END 2020-01-20 18:36 | disposition home or self-care (01) | DRG 956 ==
LOC: ERS 17:33 → SURG A 19:41
PROVIDERS: ADMIT Surgery; ATTEND Surgery
PROC: 0QS636Z Reposition Right Upper Femur with Intramedullary Internal Fixation Device, Percutaneous Approach (ICD-10-PCS; principal; 2020-01-15)
DX: S72.141A Displaced intertrochanteric fracture of right femur, initial encounter for closed fracture (principal); S06.6X0A Traumatic subarachnoid hemorrhage without loss of consciousness, initial encounter; N39.0 Urinary tract infection, site not specified; E11.9 Type 2 diabetes mellitus without complications; I10 Essential (primary) hypertension; E03.9 Hypothyroidism, unspecified; E78.5 Hyperlipidemia, unspecified; E86.0 Dehydration; E83.42 Hypomagnesemia; B35.4 Tinea corporis; I25.10 Atherosclerotic heart disease of native coronary artery without angina pectoris; W01.10XA Fall on same level from slipping, tripping and stumbling with subsequent striking against unspecified object, initial encounter; R40.2413 Glasgow coma scale score 13-15, at hospital admission; Y92.003 Bedroom of unspecified non-institutional (private) residence as the place of occurrence of the external cause; I25.2 Old myocardial infarction; Z86.73 Personal history of transient ischemic attack (TIA), and cerebral infarction without residual deficits; Z85.858 Personal history of malignant neoplasm of other endocrine glands
CPT/HCPCS: 36415; 36416; 51701; 70450; 71045; 72170; 76000; 80048; 80053; 81003; 81015; 82550; 83036; 83605; 83735; 83880; 84100; 84484; 85014; 85018; 85025; 85610; 85730; 87040; 87077; 87086; 87186; 93005; 96361; 96365; 99292; C1713; G0390; J0670; J0690; J0696; J1650; J1815; J2250; J2405; J2704; J3010; J3475; J7050; U0002

== ENCOUNTER 2021-12-08 21:06 | Inpatient (IN) | payer MEDICARE, MEDICAID ==
[2021-12-08 21:35] LABS: #Eosinphils 0.1 thou/uL (0.0-0.7); #Lymphocytes 2.8 thou/uL (1.20-3.40); #Monocytes 1.1 thou/uL (0.11-0.59); #Neutrophils 5.7 thou/uL (1.40-6.50); %Basophils 0.2 % (0.0-1.0); %Lymphocytes 28.7 % (21.0-51.0); %Monocytes 10.8 % (0.0-10.0); %Neutrophils 59.3 % (42.0-75.0); Hemoglobin 14.3 g/dL (12.0-16.0); Mean Corpuscular HGB CONC 34.1 g/dL (32.0-36.0); Mean Corpuscular Hemoglobin 32.8 pg (27.0-31.0); Mean Corpuscular Volume 96.2 fL (78.0-98.0); Mean Platelet Volume 6.9 fL (7.4-10.4); Platelet Count 276 thou/uL (130-400); RBC Distribution Width 11.7 % (11.5-14.5); Red Blood Cell (RBC) Count 4.37 mill/uL (4.20-5.40); White Blood Cell (WBC) Count 9.7 thou/uL (4.8-10.8)
[2021-12-08 21:57] LABS: ALT (SGPT) 11 U/L (8-55); AST (SGOT) 19 U/L (5-34); Albumin 3.7 g/dL (3.4-4.8); Alkaline Phosphatase 84 U/L (40-110); Anion Gap 16 mmol/L (10-20); BUN (Urea Nitrogen) 12 mg/dL (9.8-20.1); Bilirubin, Total 1.9 mg/dL (0.2-1.2); Calc. Creatinine Clearance 0 mL/min (70-130); Calcium 9.9 mg/dL (7.8-10.44); Carbon Dioxide 21 mmol/L (23-31); Chloride 102 mmol/L (98-107); Glucose 235 mg/dL (83-110); Potassium 3.7 mmol/L (3.5-5.1); Protein, Total 7.7 g/dL (5.8-8.1); Sodium 135 mmol/L (136-145)
[2021-12-08] MEDS ORDERED: Azithromycin 500 MG VIAL ONE (23:08)
[2021-12-08] MEDS ORDERED: cefTRIAXone\\ROCEPHIN 2 GM VIAL ONE (23:09)
[2021-12-09 00:58] LABS: SARS-CoV-2 NAA Rapid Test Not Detected (NotDetected)
[2021-12-09 01:12] VITALS: BMI 40.4
[2021-12-09 01:24] LABS: Bilirubin Negative (Negative); Blood, Urine 1+ (Negative); Clarity Clear (Clear); Glucose, Urine (Dipstick) 300 mg/dL (Negative); Ketone, Urine 10 mg/dL (Negative); Leukocyte 75 Leu/uL (Negative); Mucous/LPF Rare LPF (<2+); Nitrite Negative (Negative); Protein, Urine (Dipstick) 20 mg/dL (Neg-Trace); Specific Gravity, Urine 1.014 (1.002-1.036); Squamous Epithelial 0-3 HPF (0-3); Urobilinogen 3 mg/dL (Less than 2); WBC/HPF 21-50 HPF (0-3)
[2021-12-09 01:25] LABS: Bacteria/HPF 1+ HPF (None Seen)
[2021-12-09] MEDS ORDERED: Guaifenesin DM 100-10/5 ML UDCUP PO PRN ×2 (01:33→01:34)
[2021-12-09] MEDS ORDERED: HumaLOG 300 UNITS/3 ML VIAL SC PRN (02:01)
[2021-12-09] MEDS ORDERED: Dextrose 5% in Water 1,000 ML IV PRN (02:01)
[2021-12-09] MEDS ORDERED: Ondansetron PF 4 MG/2 ML Vial IVP PRN (02:01)
[2021-12-09] MEDS ORDERED: Benzonatate 100 MG CAP PO PRN (02:01)
[2021-12-09] MEDS ORDERED: Cepastat Lozenges 1 LOZ PO PRN (02:01)
[2021-12-09] MEDS ORDERED: Ondansetron ODT 4 MG TAB PO PRN (02:01)
[2021-12-09] MEDS ORDERED: Acetaminophen 500 MG TAB PO PRN (02:01)
[2021-12-09] MEDS ORDERED: Dextrose 50% Abboject 50 ML SYRINGE SLOW IVP PRN (02:01)
[2021-12-09] MEDS: Sodium Chloride 0.9% 1,000 ML IV SCH ×3 (02:36→20:18)
[2021-12-09 05:07] LABS: #Eosinphils 0.1 thou/uL (0.0-0.7); #Lymphocytes 2.6 thou/uL (1.20-3.40); #Monocytes 1.1 thou/uL (0.11-0.59); #Neutrophils 4.5 thou/uL (1.40-6.50); %Basophils 0.6 % (0.0-1.0); %Eosinophils 1.7 % (0.0-10.0); %Lymphocytes 30.9 % (21.0-51.0); %Monocytes 12.7 % (0.0-10.0); %Neutrophils 54.2 % (42.0-75.0); Hemoglobin 13.2 g/dL (12.0-16.0); Mean Corpuscular Hemoglobin 32.1 pg (27.0-31.0); Mean Corpuscular Volume 97.3 fL (78.0-98.0); Mean Platelet Volume 7.3 fL (7.4-10.4); Platelet Count 229 thou/uL (130-400); RBC Distribution Width 11.7 % (11.5-14.5); Red Blood Cell (RBC) Count 4.11 mill/uL (4.20-5.40); White Blood Cell (WBC) Count 8.3 thou/uL (4.8-10.8)
[2021-12-09 05:51] LABS: ALT (SGPT) 12 U/L (8-55); AST (SGOT) 23 U/L (5-34); Albumin 3.2 g/dL (3.4-4.8); Alkaline Phosphatase 77 U/L (40-110); Anion Gap 16 mmol/L (10-20); BUN (Urea Nitrogen) 9 mg/dL (9.8-20.1); Bilirubin, Total 1.5 mg/dL (0.2-1.2); Calc. Creatinine Clearance 91 mL/min (70-130); Carbon Dioxide 18 mmol/L (23-31); Chloride 107 mmol/L (98-107); Globulin 3.6 g/dL (2.4-3.5); Glucose 213 mg/dL (83-110); Protein, Total 6.8 g/dL (5.8-8.1); Sodium 137 mmol/L (136-145)
[2021-12-09] MEDS: Levothyroxine Sodium 125 MCG TAB PO SCH (06:04)
[2021-12-09] MEDS ORDERED: metFORMIN 500 MG TAB PO SCH (08:00)
[2021-12-09] MEDS: Pioglitazone HCl 15 MG TAB PO SCH (08:33)
[2021-12-09] MEDS: Alogliptin 6.25 MG TAB PO SCH (08:33)
[2021-12-09] MEDS: Atorvastatin Calcium 40 MG TAB PO SCH (08:34)
[2021-12-09] MEDS: Furosemide 20 MG TAB PO SCH (08:34)
[2021-12-09] MEDS: Gabapentin 100 MG CAP PO SCH ×3 (08:34→20:17)
[2021-12-09] MEDS: Aspirin Chewable 81 MG TAB PO SCH (08:34)
[2021-12-09] MEDS: Amlodipine 10 MG TAB PO SCH (08:34)
[2021-12-09] MEDS: Lisinopril 20 MG TAB PO SCH (08:34)
[2021-12-09] MEDS: Famotidine 20 MG TAB PO SCH (08:35)
[2021-12-09] MEDS: HumaLOG 300 UNITS/3 ML VIAL SC PRN ×2 (12:11→17:21)
[2021-12-09] MEDS: metFORMIN 500 MG TAB PO SCH (17:20)
[2021-12-09] MEDS ORDERED: cefTRIAXone\\ROCEPHIN 2 GM in Sodium Chloride 0.9% 100 ML IVPB SCH (22:00)
[2021-12-09] MEDS ORDERED: Azithromycin 500 MG in Sodium Chloride 0.9% 250 ML 250 ML IVPB SCH (23:00)
[2021-12-10] MEDS: Levothyroxine Sodium 125 MCG TAB PO SCH (06:07)
[2021-12-10 07:37] VITALS: TEMP 97.8
[2021-12-10] MEDS: Alogliptin 6.25 MG TAB PO SCH (08:58)
[2021-12-10] MEDS: Lisinopril 20 MG TAB PO SCH (08:58)
[2021-12-10] MEDS: Amlodipine 10 MG TAB PO SCH (08:59)
[2021-12-10] MEDS: Pioglitazone HCl 15 MG TAB PO SCH (08:59)
[2021-12-10] MEDS: Aspirin Chewable 81 MG TAB PO SCH (08:59)
[2021-12-10] MEDS ORDERED: Enoxaparin Sodium 40 MG/0.4 ML SYRINGE SC SCH (09:00)
[2021-12-10] MEDS: metFORMIN 500 MG TAB PO SCH (09:00)
[2021-12-10] MEDS: Famotidine 20 MG TAB PO SCH (09:01)
[2021-12-10] MEDS: Gabapentin 100 MG CAP PO SCH (09:01)
[2021-12-10] MEDS: Atorvastatin Calcium 40 MG TAB PO SCH (09:01)
[2021-12-10] MEDS: Furosemide 20 MG TAB PO SCH (09:01)
[2021-12-10 11:51] VITALS: BP 140/65
[2021-12-10] MEDS: HumaLOG 300 UNITS/3 ML VIAL SC PRN (12:15)
== END 2021-12-10 15:05 | disposition home or self-care (01) | DRG 871 ==
LOC: ERS 21:06 → 2SW 23:45
PROVIDERS: ADMIT Internal Medicine; ATTEND Internal Medicine
DX: A41.9 Sepsis, unspecified organism (principal); J18.9 Pneumonia, unspecified organism; N39.0 Urinary tract infection, site not specified; Z68.41 Body mass index [BMI] 40.0-44.9, adult; Z20.822 Contact with and (suspected) exposure to COVID-19; E03.9 Hypothyroidism, unspecified; E78.5 Hyperlipidemia, unspecified; I10 Essential (primary) hypertension; E66.01 Morbid (severe) obesity due to excess calories; I25.10 Atherosclerotic heart disease of native coronary artery without angina pectoris; E11.9 Type 2 diabetes mellitus without complications; I25.2 Old myocardial infarction; Z79.899 Other long term (current) drug therapy; Z79.84 Long term (current) use of oral hypoglycemic drugs; Z79.82 Long term (current) use of aspirin; Z79.890 Hormone replacement therapy
CPT/HCPCS: 36415; 36416; 71045; 71046; 80053; 81003; 81015; 83605; 84145; 84484; 85025; 87040; 93005; J0456; J0696; J1650; J1815; J3490; J7050

== ENCOUNTER 2022-07-08 15:05 | Emergency (ER) | payer MEDICAID, MEDICARE, OTHER ==
[2022-07-08 16:18] LABS: #Eosinphils 0.2 thou/uL (0.0-0.7); #Lymphocytes 2.1 thou/uL (1.20-3.40); #Monocytes 0.6 thou/uL (0.11-0.59); #Neutrophils 3.4 thou/uL (1.40-6.50); %Basophils 0.5 % (0.0-1.0); %Eosinophils 3.4 % (0.0-10.0); %Lymphocytes 32.9 % (21.0-51.0); %Monocytes 8.7 % (0.0-10.0); %Neutrophils 54.5 % (42.0-75.0); Hemoglobin 13.8 g/dL (12.0-16.0); Mean Corpuscular HGB CONC 32.3 g/dL (32.0-36.0); Mean Corpuscular Hemoglobin 31.5 pg (27.0-31.0); Mean Corpuscular Volume 97.7 fl (78.0-98.0); Mean Platelet Volume 8.2 fL (7.4-10.4); Platelet Count 169 10x3/uL (130-400); Red Blood Cell (RBC) Count 4.38 mill/uL (4.20-5.40); White Blood Cell (WBC) Count 6.3 10x3/uL (4.8-10.8)
[2022-07-08 16:40] LABS: ALT (SGPT) 9 U/L (8-55); AST (SGOT) 14 U/L (5-34); Albumin 3.9 g/dL (3.4-4.8); Alkaline Phosphatase 69 U/L (40-110); Anion Gap 15 mmol/L (10-20); BUN (Urea Nitrogen) 22 mg/dL (9.8-20.1); Bilirubin, Total 1.5 mg/dL (0.2-1.2); Calc. Creatinine Clearance 0 mL/min (70-130); Calcium 9.5 mg/dL (7.8-10.44); Carbon Dioxide 23 mmol/L (23-31); Chloride 108 mmol/L (98-107); Estimated GFR 70; Glucose 117 mg/dL (83-110); Potassium 4.1 mmol/L (3.5-5.1); Protein, Total 6.9 g/dL (5.8-8.1); Sodium 142 mmol/L (136-145)
[2022-07-08 18:38] LABS: Bacteria/HPF 4+ HPF (None Seen); Bilirubin Negative (Negative); Blood, Urine Negative (Negative); Clarity Clear (Clear); Glucose, Urine (Dipstick) Normal (Negative); Ketone, Urine Negative (Negative); Leukocyte Negative Leu/uL (Negative); Nitrite 2+ (Negative); Protein, Urine (Dipstick) Negative (Neg-Trace); RBC/HPF 0-3 HPF (0-3); Specific Gravity, Urine 1.013 (1.002-1.036); Squamous Epithelial 0-3 HPF (0-3); Urobilinogen Normal mg/dL (Less than 2); WBC/HPF 0-3 HPF (0-3)
== END 2022-07-08 18:48 | disposition home or self-care (01) ==
LOC: ERS 15:05
DX: R06.02 Shortness of breath (principal); E78.5 Hyperlipidemia, unspecified; I10 Essential (primary) hypertension; Z79.82 Long term (current) use of aspirin; Z79.899 Other long term (current) drug therapy; Z79.84 Long term (current) use of oral hypoglycemic drugs
CPT/HCPCS: 36415; 70450; 71045; 80053; 81003; 81015; 83880; 84484; 85025; 93005